=== PATIENT | male | born 1980 | race Caucasian/White ===

== ENCOUNTER 2018-05-16 09:38 | Outpatient (REF) | payer MEDICAID, SELFPAY ==
[2018-05-16 12:37] LABS: Cholesterol 211 mg/dL (50-200); Glucose 88 mg/dL (70-100); HDL Cholesterol 52 mg/dL (40-60); LDL CHOLESTEROL 141 mg/dL (<100); Triglyceride 52 mg/dL (30-150)
[2018-05-17 10:15] LABS: HIV-1/2 Ag & Ab Screen Negative (NEGAT)
== END 2018-05-16 09:58 ==
LOC: NCHCN 09:38
PROVIDERS: PCP Nurse Practitioner Adult Health; Visit Provider Family Medicine
DX: Z00.00 Encounter for general adult medical examination without abnormal findings (principal); Z13.1 Encounter for screening for diabetes mellitus; Z13.220 Encounter for screening for lipoid disorders; Z11.4 Encounter for screening for human immunodeficiency virus [HIV]
CPT/HCPCS: 80061; 82947; 83721; 87389

== ENCOUNTER 2021-08-23 19:02 | Outpatient (REF) | payer BC, MEDICAID, SELFPAY ==
[2021-08-23 15:51] LABS: Calculated LDL 151 mg/dL (<100); Cholesterol 224 mg/dL (<200); Glucose 90 mg/dL (74-106); HDL Cholesterol 55 mg/dL (40-60); Triglyceride 91 mg/dL (<150)
[2021-08-24 10:32] LABS: HIV-1/2 Ag & Ab Screen Negative (Negative)
[2021-08-26 14:54] LABS: Hepatitis C Ab w Rflx HCV PCR Negative (Negative)
== END 2021-08-23 19:03 | disposition home or self-care (01) ==
LOC: NCHCN 19:02
PROVIDERS: PCP Nurse Practitioner Adult Health; Visit Provider Family Medicine
DX: Z00.00 Encounter for general adult medical examination without abnormal findings (principal); Z11.4 Encounter for screening for human immunodeficiency virus [HIV]; Z13.1 Encounter for screening for diabetes mellitus; Z11.59 Encounter for screening for other viral diseases; Z13.220 Encounter for screening for lipoid disorders
CPT/HCPCS: 80061; 82947; 86803; 87389

== ENCOUNTER 2022-08-19 00:40 | Outpatient (CLI) | payer MEDICAID, SELFPAY ==
--- NOTE | 2022-08-19 14:41 | DI.RAD_ITS ---
Exam(s) XR CHEST 2V PA LATERAL EXAM: XR CHEST 2V PA LATERAL CLINICAL HISTORY: CHEST WALL PAIN R07.89 TECHNIQUE: 2D digital imaging was performed. COMPARISON: No exams were available for comparison FINDINGS: HEART: Normal size. Aorta: Not dilated. PULMONARY VASCULATURE: Normal. LUNGS: Clear. PLEURAL SPACE: No pleural effusion or pneumothorax. BONE:Unremarkable for age. No spine or rib fracture seen. IMPRESSION: No acute abnormality. DATA REPOSITORY: RADIATION DOSE DELIVERED:
== END 2022-08-19 01:00 ==
LOC: DI 00:41
PROVIDERS: PCP Family Medicine; Visit Provider Family Medicine
DX: R07.89 Other chest pain (principal)
CPT/HCPCS: 71046